=== PATIENT | female | born 1980 | race Caucasian/White ===

== ENCOUNTER 2017-09-15 21:53 | Emergency (ER) | payer OTHER ==
[~2017-09-15] VITALS: Ht 167.6 cm; Wt 80.0 kg
[2017-09-15 21:55] VITALS: BP 153/68; PULSE 88; RESP 16; TEMP 99.1; O2SAT 98
--- NOTE | 2017-09-15 22:11 | PD ---
HPI Chief Complaint: Bite or Sting Time Seen by Provider: 22:04 Travel History International Travel<30 days: No Contact w/Intl Traveler<30days: No Traveled to known affect area: No History of Present Illness HPI 37-year-old female presents for evaluation of a dog bite to the right wrist. 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 Prior to arrival 1 of the dogs that she was trying to put her on the right wrist. The dog is up-to- date on his vaccinations. She has 3 puncture wounds/lacerations of the right wrist which are mildly painful, worse with movement. Denies any numbness or tingling distal to the injury site. Last tetanus vaccination unknown. No other complaints. PFSH Past Medical History Medical History: Denies Significant Hx ?: Not Past Surgical History Surgical History: No Previous Surgery Social History Alcohol Use: Yes Tobacco Use: Yes (06/30/ [employer]) Substance Use: No Allergies-Medications (Allergen,Severity, Reaction): Coded Allergies: No Known Allergies (Unverified , 09/15/17) Reported Meds & Prescriptions Reported Meds & Active Scripts Active Augmentin (Amoxicillin-Clavulanate) 875-125 Mg Tab 1 Tab PO BID 7 Days Review of Systems General / Constitutional: No: Fever, Chills Musculoskeletal: Positive: Pain Skin: Positive Other (Puncture wound, bleeding) Neurologic: No: Paresthesia Physical Exam Narrative GENERAL: Well-developed well-nourished female no acute distress SKIN: Warm and dry. 3 wounds to the right wrist. 2 of the wounds are approximately 1 cm in length each with some subcutaneous tissue exposing of the wounds. Another one is approximately 0.5 cm in length. MUSCULOSKELETAL: Skin as noted above. Full range of motion of the right wrist and hand, distal sensation is preserved, capillary refill less than 2 seconds all digits right hand. Data Data Last Documented VS Vital Signs Date Time Temp Pulse Resp B/P (MAP) Pulse Ox O2 Delivery O2 Flow Rate FiO2 09/15/17 21:55 99.1 88 16 153/68 (96) 98 Orders Orders Wrist, Complete ([id number]) (09/15/17 ) Tetanus/Diphtheria Tox Adult (Tetanus/Di (09/15/17 22:15) Amoxicil-Clavulanate (Augmentin) (09/15/17 22:15) Wound Care (09/15/17 22:43) Ed Discharge Order (09/15/17 23:01) [facility] Medical Decision Making Medical Screen Exam Complete: Yes Emergency Medical Condition: Yes Medical Record Reviewed: Yes Differential Diagnosis Dog bite, puncture wound, fracture, foreign body, laceration Narrative Course X-ray imaging will be obtained. Augmentin administered. Tetanus status updated. The wounds will be thoroughly irrigated. The 2 larger wounds will be very loosely sutured, she verbally consents. X-ray imaging reveals laceration with no foreign body or bony abnormality. She is stable for discharge. Procedures Procedure Narrative LACERATION LOCATION: Right wrist LENGTH: 1 cm NUMBER OF STITCHES/KAITLIN: 2 REPAIR: The area of the laceration was prepped with Betadine and sterilely draped. The laceration was infiltrated with 1% lidocaine with epinephrine. The wound was copiously irrigated and explored without evidence of foreign body , tendon injury or neurovascular injury. The wound was closed using 4-0 nylon simple interrupted. This was a single layer repair. A sterile dressing was applied. The patient was advised to keep the dressing clean and dry. Patient tolerated the procedure well. LACERATION LOCATION: Right wrist LENGTH: 1 cm NUMBER OF STITCHES/KAITLIN: 2 REPAIR: The area of the laceration was prepped with Betadine and sterilely draped. The laceration was infiltrated with 1% lidocaine with epinephrine. The wound was copiously irrigated and explored without evidence of foreign body , tendon injury or neurovascular injury. The wound was closed using 4-0 nylon simple interrupted. This was a single layer repair. A sterile dressing was applied. The patient was advised to keep the dressing clean and dry. Patient tolerated the procedure well. Diagnosis Primary Impression: Dog bite Additional Instructions: Wash the wounds to 3 times a day with soap and water and apply antibiotic cream and clean bandages. Take antibiotics as prescribed. Return in approximately 10 days for suture removal. Return sooner for signs of active infection such as increasing redness around the wounds, pus coming from the wound, red streaks up the arm, fevers. Med/Other Pt SpecificInfo: Prescription(s) given, Wound Care Scripts Amoxicillin-Clavulanate (Augmentin) 875-125 Mg Tab 1 TAB PO BID for Infection for 7 Days, #14 TAB 0 Refills Prov: Aftab Gonzalez MD 09/15/17 Disposition: 01 DISCHARGE HOME Condition: Stable Fox Carias Sep 15, 2017 22:11
[2017-09-15] MEDS ORDERED: TETANUS/DIPHTHERIA TOXOID ADULT 0.5 ML VIAL IM ONE (22:15)
[2017-09-15] MEDS ORDERED: AMOXICILLIN/CLAVULANATE K 875 MG TAB PO ONE (22:15)
[2017-09-15] MEDS ORDERED: AUGM875T3 PO (22:43)
--- NOTE | 2017-09-15 22:58 | RADRPT ---
EXAM DATE/TIME: 09/15/2017 22:19 [place] COMPARISON: No previous studies available for comparison. INDICATIONS : Right wrist laceration. Patients dog bite her during [employer] training. MEDICAL HISTORY : None. SURGICAL HISTORY : None. ENCOUNTER: Initial ACUITY: 1 day PAIN SCORE: 2/10 LOCATION: Right wrist. FINDINGS: Three view examination of the right wrist demonstrates no dislocation, or fracture. The carpal bones are in normal alignment. The joint spaces are maintained. Bony mineralization is normal. CONCLUSION: 1. No acute bony abnormalities. No radiopaque foreign body. Laceration distal forearm. Paul Douglas MD on September 15, 2017 at 22:56 Board Certified Radiologist. This report was verified electronically.
== END 2017-09-15 23:51 | disposition home or self-care (01) ==
LOC: NEPD 21:53
DX: S61.551A Open bite of right wrist, initial encounter (principal); W54.0XXA Bitten by dog, initial encounter; Y93.K9 Activity, other involving animal care; Y99.0 Civilian activity done for income or pay; Z23 Encounter for immunization
CPT/HCPCS: 12001; 73110; 90471; 90714